=== PATIENT | female | born 1960 | race Caucasian/White ===

== ENCOUNTER 2017-05-05 18:37 | Emergency (ER) | payer BC ==
[~2017-05-05] VITALS: Ht 162.6 cm; Wt 64.3 kg
[2017-05-05] MEDS ORDERED: PERCOCET 5/31 TABLET PO (20:43)
[2017-05-05] MEDS ORDERED: AUGMENTIN875 MG PO (20:43)
[2017-05-05 22:00] VITALS: BP 168/79
== END 2017-05-05 22:00 | disposition home or self-care (01) ==
LOC: EME 18:37
PROC: 0HQFXZZ Repair Right Hand Skin, External Approach (ICD-10-PCS; principal; 2017-05-05)
DX: S68.126A Partial traumatic metacarpophalangeal amputation of right little finger, initial encounter (principal); S60.572A Other superficial bite of hand of left hand, initial encounter; W54.0XXA Bitten by dog, initial encounter
CPT/HCPCS: 73140; 99281; 99285; J0295; J3010; J7050; S0020